=== PATIENT | male | born 1950 | race Caucasian/White ===

== ENCOUNTER 2024-01-17 16:50 | Inpatient (IN) ==
--- NOTE | 2024-01-17 17:14 | Emergency Department Note ---
Impression & Plan PSVT (paroxysmal supraventricular tachycardia), Chest pain, Palpitations ED Provider Note NAME: JOHN JUNIOR AGE: 73 SEX: M : 1950 ARRIVES VIA: Walk-In INFORMANT: Patient, ED PROVIDER(S): Kirk Queen DO CHIEF COMPLAINT: Palpitations HPI: The patient is a 73-year-old male who presented to the emergency department for an evaluation of palpitations. The patient had an acute onset of palpitations earlier this morning. He states it was around breakfast. He has had a similar episode over the course the last few years but it never lasted this long. He denies having any lower extremity swelling. He denies having any shortness of breath. He does note some "burning" across his anterior chest. He states that this does somewhat worsen with exertion. The patient was not seen by his family doctor but came to the emergency department because symptoms were not resolving in usual fashion. ROS: See above HPI for pertinent positives & negatives. A total of 10 systems reviewed and were otherwise negative. PAST MEDICAL HISTORY: See Below PAST SURGICAL HISTORY: See Below FAMILY HISTORY: See Below SOCIAL HISTORY: See Below HOME MEDICATIONS: See Below ALLERGIES: See Below VITALS: See Below PHYSICAL EXAMINATION: GENERAL: Patient is awake alert in no acute distress patient is resting comfortably and showing no signs of anxiety EYES: The conjunctivae are clear. The pupils are round and reactive. EARS, NOSE, MOUTH AND THROAT: The nose is without any evidence of any deformity. Mucous membranes are moist. Tongue is midline. NECK: The neck is nontender and supple. RESPIRATORY: Normal respiratory effort is noted there is no evidence of wheezing rhonchi or rales CARDIOVASCULAR: Tachycardic and regular heart sounds were noted to auscultation. There is no definite murmur. GASTROINTESTINAL: The abdomen is soft. Abdomen is nontender. MUSCULOSKELETAL/EXTREMITIES: There is no evidence of gross deformity full range of motion is noted in the hips and shoulders. SKIN: There is no obvious evidence of any rash. There are no petechiae, pallor or cyanosis noted. NEUROLOGIC: Patient is awake alert and oriented x3 strength is symmetric patellar reflexes are 2+ bilaterally MEDICAL DECISION MAKING: The patient is a 73-year-old male who presented to the emergency department for an evaluation of chest discomfort. The patient was found to be tachycardic with a narrow complex tachycardia. This was treated as an SVT. He was in the SVT since this morning. The patient was treated initially with a modified Valsalva maneuver which did relieve the SVT but then he went back into it quickly. He was then treated with adenosine and IV fluids. He went back into the SVT again and was treated with another dose of adenosine as well as oral beta-blockers. I discussed patient's laboratory and radiographic studies with him. He did have some ischemic changes which were likely rate related. I discussed his condition with the on-call [facility] hospitalist as well as the on-call [facility] contract graphic designer. The patient will likely be a good candidate for inpatient management. He may need an echocardiogram to further evaluate the cause of his symptoms. The patient was agreeable with this plan. Triage Nursing notes reviewed. Prior medical records reviewed Vital Signs: reviewed and remarkable for bradycardia and hypertension. Differential diagnosis: Premature contractions, electrolyte abnormality, cardiac dysrhythmia, thyroid dysfunction, pulmonary embolism, infection, gastrointestinal, as well as other pathologies. ER treatment provided: See below Diagnostics interpreted by me: ECG: EKG was obtained in the emergency department. My interpretation is SVT at [address] depressions were noted. There were no PVCs. This was compared to a tracing from November 28, 2017. SVT has replaced sinus rhythm. A second EKG was obtained after modified Valsalva maneuver. My interpretation is sinus tachycardia at 104 bpm. There is no ectopy. Persistence but improvement of the previously noted ST segment depressions as noted. This compares similar to the previous tracing from November 28, 2017. Cardiac Monitoring: An order was placed for continuous cardiac monitoring. The monitor shows a rate of 45 bpm with sinus bradycardia. Laboratory studies: As stated above and show below. Imaging studies: See below. Radiographic imaging was reviewed by myself Consultation(s): I discussed this case with Dr. Sorenson who is on-call for the [facility] contract graphic designer group. I discussed this case with Dr. Dietz who is on-call for the [facility] hospitalist group. ED COURSE: Procedures: none Critical Care: I have personally spent greater than 45 minutes of critical care time in the direct management of this patient. This includes bedside care, interpretation of diagnostic studies, and testing, discussion with consultants, patient, and family members, and other required patient management activities. This 45 minutes is in excess of all separately billable procedures. Past Med/Surg History Problem List (Updated 01/17/24 @ 22:28 by Kirk Queen DO) PSVT (paroxysmal supraventricular tachycardia) (Acute) Palpitations (Acute) Chest pain (Acute) Medical History High cholesterol Hypertension Social History Smoking Status: Former smoker Tobacco Type: Smokeless Tobacco (Dip or Chew) Do You Dip or Chew Tobacco: Yes (1 can q2 days); Hx Alcohol Use: Yes Alcohol type: beer Hx Substance Use: No Preferred Language: Taiwanese Communication Ability: Effective Regulatory Intern Required: No Beliefs That Will Affect Care: None Current Living Situation: Spouse Feels Safe at Home: Yes Assistive Devices: Glasses Allergies Allergies Allergy/AdvReac Type Severity Reaction Status Date / Time amlodipine Allergy Severe Hives Unverified 01/17/24 18:38 Home Meds Home Medications Medication Instructions Recorded Confirmed lisinopril 10 mg tablet 10 mg PO DAILY 01/17/24 01/17/24 Results & Data (ED) Vital Signs Vital Signs - 24 hr 01/17/24 16:54 01/17/24 17:02 01/17/24 17:03 Temperature 36.9 C Temperature Source Temporal Artery Scan Pulse Rate 130 H 158 H Pulse Rate [Apical] Pulse Rhythm Regular Pulse Rhythm [Apical] Pulse Strength Normal Pulse Strength [Apical] Respiratory Rate 20 Respiratory Effort / Characteristics Non-Labored Spontaneous Respiratory Depth Normal Respiratory Pattern Blood Pressure 119/88 Blood Pressure [Left Arm] Blood Pressure Mean 98 Blood Pressure Mean [Left Arm] Blood Pressure Position [Left Arm] Pulse Oximetry 97 98 Oxygen Delivery Method Room Air Room Air Sepsis Recent Fever Within 48 Hours No Sepsis New/Unexplained Change in Mental Status N/A Sepsis Action Taken by Nursing No Action Required 01/17/24 17:12 01/17/24 17:21 01/17/24 17:28 Temperature Temperature Source Pulse Rate 92 H Pulse Rate [Apical] 143 H 91 H Pulse Rhythm Pulse Rhythm [Apical] Regular Regular Pulse Strength Pulse Strength [Apical] Normal Normal Respiratory Rate 17 25 H Respiratory Effort / Characteristics Non-Labored Spontaneous Non-Labored Spontaneous Respiratory Depth Normal Normal Respiratory Pattern Regular Regular Blood Pressure Blood Pressure [Left Arm] 143/97 H 139/74 Blood Pressure Mean Blood Pressure Mean [Left Arm] 112 95 Blood Pressure Position [Left Arm] Lying Lying Pulse Oximetry 98 99 Oxygen Delivery Method Room Air Room Air Sepsis Recent Fever Within 48 Hours Sepsis New/Unexplained Change in Mental Status Sepsis Action Taken by Nursing 01/17/24 18:59 Temperature Temperature Source Pulse Rate Pulse Rate [Apical] 75 Pulse Rhythm Pulse Rhythm [Apical] Regular Pulse Strength Pulse Strength [Apical] Normal Respiratory Rate 18 Respiratory Effort / Characteristics Non-Labored Spontaneous Respiratory Depth Normal Respiratory Pattern Regular Blood Pressure Blood Pressure [Left Arm] 127/72 Blood Pressure Mean Blood Pressure Mean [Left Arm] 90 Blood Pressure Position [Left Arm] Sitting Pulse Oximetry 98 Oxygen Delivery Method Room Air Sepsis Recent Fever Within 48 Hours Sepsis New/Unexplained Change in Mental Status Sepsis Action Taken by Snf Medications Current Medication List: was personally reviewed by me Laboratory Data Attestation: I reviewed the patient's lab results. 01/17/24 17:11 01/17/24 17:11 Lab Results 01/17/24 Range/Units 17:11 WBC 9.34 (4.8-10.8) K/ul RBC 5.18 (4.70-6.10) M/uL Hgb 14.7 (14.0-18.0) g/dl Hct 45.0 (42.0-52.0) % MCV 86.9 (80.0-100.0) fL MCH 28.4 (25.0-34.0) pg MCHC 32.7 (32.0-36.0) g/dL RDW Std Deviation 38.6 (36.4-46.3) fL RDW Coeff of Grace 12.1 (11.5-14.5) % Plt Count 295 (130-400) K/uL MPV 12.0 (9.4-12.4) fL Immature Gran % (Auto) 0.6 % Neut % (Auto) 71.5 % Lymph % (Auto) 19.5 % Ripley % (Auto) 7.8 % Eos % (Auto) 0.2 % Baso % (Auto) 0.4 % Neut # (Auto) 6.67 H (1.40-6.50) K/uL Lymph # (Auto) 1.82 (1.20-3.40) K/uL Ripley # (Auto) 0.73 H (0.11-0.59) K/uL Eos # (Auto) 0.02 (0.00-0.50) K/uL Baso # (Auto) 0.04 (0.00-0.20) K/uL Immature Gran # (Auto) 0.06 (0.01-0.20) K/uL PT 10.6 (9.0-12.0) Seconds INR 1.0 (0.9-1.1) APTT 30 (21-31) Seconds PTT Ratio 1.1 Sodium 134 L (136-145) mmol/L Potassium 3.9 (3.5-5.1) mmol/L Chloride 97 L (98-107) mmol/L Carbon Dioxide 28 (21-32) mmol/L Anion Gap 9 (3-11) BUN 19 (6-23) mg/dl Creatinine 1.15 (0.6-1.4) mg/dl Est Cr Clr Drug Dosing 57.0 ml/min Est GFR ( Amer) 73.8 ml/min Est GFR (Non-Af Amer) 63.7 ml/min BUN/Creatinine Ratio 16.5 (10-20) Glucose 235 H (70-99(Fasting)) mg/dl Calcium 9.7 (8.6-10.3) mg/dl Magnesium 2.0 (1.7-2.4) mg/dl Total Bilirubin 0.7 (0.2-1.0) mg/dl AST 18 (13-39) U/L ALT 16 (7-52) U/L Alkaline Phosphatase 33 L (34-104) U/L Troponin I High Sens 17.3 (0-20) pg/ml Total Protein 7.4 (6.0-8.3) gm/dl Albumin 4.3 (3.4-5.0) gm/dl Globulin 3.1 (2.5-4.0) gm/dl Albumin/Globulin Ratio 1.4 (0.9-2) Lipase 26 (11-82) U/L TSH 1.615 (0.300-4.500) uIu/ml Administered Medications Acetaminophen (Acetaminophen 325 Mg Tab) 650 mg PO Q4H PRN PRN Reason: Pain or Fever Stop: 02/16/24 20:51 Last Admin: 08/12/24 21:47 Dose: 650 mg Documented By: DANNA Metoprolol Tartrate (Metoprolol Tartrate 25 Mg Tab) 25 mg PO BID LETHA Stop: 02/16/24 20:59 Last Admin: 01/17/24 21:25 Dose: Not Given Documented By: DANNA Discontinued Medications Adenosine (Adenosine Iv Soln 3 Mg/Ml 2 Ml Vial) Confirm Administered Dose 18 mg IV .STK-MED ONE Stop: 01/17/24 17:03 Last Admin: 01/17/24 17:30 Dose: Not Given Documented By: ANTWAN Adenosine (Adenosine Iv Soln 3 Mg/Ml 2 Ml Vial) Confirm Administered Dose 12 mg IV .STK-MED ONE Stop: 01/17/24 17:23 Last Admin: 01/17/24 17:30 Dose: Not Given Documented By: ANTWAN Adenosine (Adenosine Iv Soln 3 Mg/Ml 2 Ml Vial) 6 mg IV NOW STA Stop: 01/17/24 17:27 Last Admin: 01/17/24 17:28 Dose: 6 mg Documented By: Adenosine (Adenosine Iv Soln 3 Mg/Ml 2 Ml Vial) 6 mg IV NOW STA Stop: 01/17/24 18:28 Last Admin: 01/17/24 18:28 Dose: 6 mg Documented By: Sodium Chloride (Nss) 500 mls @ 999 mls/hr IV .Q31M STA Stop: 01/17/24 17:33 Last Infusion: 01/17/24 18:07 Dose: Infused Documented By: Admin: 01/17/24 17:29 Dose: 999 mls/hr Documented By: Sodium Chloride (Nss) 500 mls @ 999 mls/hr IV .Q31M ONE Stop: 01/17/24 17:50 Last Infusion: 01/17/24 18:07 Dose: Infused Documented By: Admin: 01/17/24 17:29 Dose: 999 mls/hr Documented By: Metoprolol Tartrate (Metoprolol Tartrate 50 Mg Tab) 25 mg PO NOW STA Stop: 01/17/24 18:38 Last Admin: 01/17/24 18:58 Dose: 25 mg Documented By: ANTWAN Imaging Data Attestation: I personally reviewed and interpreted this imaging study as follows: My Impression: 1 view chest x-ray was obtained in the emergency department. My interpretation is no free air or definite culture, final report below. Radiologist's Impression: Chest X-Ray 01/17/24 17:03 XR chest 1V portable HISTORY: Chest pain, nonspecific COMPARISON: Chest 11/28/2017. FINDINGS: The lungs are clear. Cardiac silhouette is normal in size. No pleural effusions. No pneumothorax. IMPRESSION: No acute process. ACT 112: Negative or not required by law. Electronically signed by: Wayne Roa M.D. 01/17/2024 6:15 PM Discharge Plan Visit Data Chief Complaint: Chest Pain Stated Complaint: CHEST PAIN, SOB, DIZZY ED Provider: Kirk Queen Discharge Problem: PSVT (paroxysmal supraventricular tachycardia), Chest pain, Palpitations Patient Disposition: Admitted As Inpatient Discharge Instructions Interventions: ED Discharge Assessment Last Done: 01/17/24 20:27 Discharge Problem: Chest pain Qualifiers: Chest pain type: unspecified Qualified Code(s): R07.9 - Chest pain, unspecified
[2024-01-17] MEDS: ADENOSINE IV SOLN 3 MG/ML 2 ML VIAL IV STA ×2 (17:28→18:28)
[2024-01-17] MEDS: SODIUM CHLORIDE 0.9% 500 ML IV STA (17:29)
[2024-01-17] MEDS: SODIUM CHLORIDE 0.9% 500 ML IV ONE (17:29)
[2024-01-17] MEDS: ADENOSINE IV SOLN 3 MG/ML 2 ML VIAL IV ONE ×2 (17:30)
[2024-01-17 17:43] LABS: Albumin Globulin Ratio 1.4 (0.9-2); Albumin Level 4.3 gm/dl (3.4-5.0); BUN Creatinine Ratio 16.5 (10-20); Bilirubin,Total 0.7 mg/dl (0.2-1.0); Calcium 9.7 mg/dl (8.6-10.3); Est GFR (African American) 73.8 ml/min; Est GFR (Non-African American) 63.7 ml/min; Globulin 3.1 gm/dl (2.5-4.0); Potassium 3.9 mmol/L (3.5-5.1); Total Protein 7.4 gm/dl (6.0-8.3)
[2024-01-17 17:49] LABS: Troponin I High Sensitivity 17.3 pg/ml (0-20)
[2024-01-17 17:54] LABS: Partial Thromboplastin Ratio 1.1; Partial Thromboplastin Time 30 Seconds (21-31); Prothrombin Time 10.6 Seconds (9.0-12.0)
[2024-01-17 17:59] LABS: Thyroid Stimulating Hormone 1.615 uIu/ml (0.300-4.500)
[2024-01-17 18:11] LABS: Hemoglobin 14.7 g/dl (14.0-18.0); Mean Corpuscular Hemoglobin 28.4 pg (25.0-34.0); Mean Corpuscular Hgb Conc 32.7 g/dL (32.0-36.0); Mean Corpuscular Volume 86.9 fL (80.0-100.0); RDW Coefficient of Variation 12.1 % (11.5-14.5); RDW Standard Deviation 38.6 fL (36.4-46.3); Red Blood Count 5.18 M/uL (4.70-6.10); White Blood Count 9.34 K/ul (4.8-10.8)
--- NOTE | 2024-01-17 18:16 | XRay Report ---
XR chest 1V portable HISTORY: Chest pain, nonspecific COMPARISON: Chest 11/28/2017. FINDINGS: The lungs are clear. Cardiac silhouette is normal in size. No pleural effusions. No pneumot horax. IMPRESSION: No acute process. ACT 112: Negative or not required by law. Electronically signed by: Wayne Roa M.D. 01/17/2024 6:15 PM
[2024-01-17 18:18] LABS: Basophils # (auto) 0.04 K/uL (0.00-0.20); Basophils % (auto) 0.4 %; Eosinophils # (auto) 0.02 K/uL (0.00-0.50); Eosinophils % (auto) 0.2 %; Immature Granulocytes # (auto) 0.06 K/uL (0.01-0.20); Immature Granulocytes % (auto) 0.6 %; Lymphocytes # (auto) 1.82 K/uL (1.20-3.40); Lymphocytes % (auto) 19.5 %; Monocytes # (auto) 0.73 K/uL (0.11-0.59); Monocytes % (auto) 7.8 %; Neutrophils # (auto) 6.67 K/uL (1.40-6.50); Neutrophils % (auto) 71.5 %; Platelet Count 295 K/uL (130-400)
[2024-01-17] MEDS: METOPROLOL TARTRATE 50 MG TAB PO STA (18:58)
--- NOTE | 2024-01-17 19:23 | History & Physical Report ---
Date of Service January 17, 2024 Assessment & Plan (1) Hypertension: (2) Palpitations: (3) PSVT (paroxysmal supraventricular tachycardia): Plan Mr. Thomson is a 73-year-old male with past medical history of elevated for hypertension and hyperlipidemia who was admitted due to palpitations that are likely related to pSVT pSVT // palpitations - Patient brought by EMS due to palpitation w/ associated SOB, chest tightness, and dizziness Has had similar symptoms in the past but not as severe or as long lasting; hx of cath in 2018 that was negative, per patient - Found to be in SVT with HR reaching 150s, once resolved with Valsalva and returned to SVT twice in short time span, which resolved with 2 separate doses of Adenosine 6 mg - Vital signs remained stable during episodes of tachycardia - Currently at NSR at the time of evaluation and patient asymptomatic - Troponins negative x1, repeat ordered and pending - TSH wnl at 1.61 - Will admit to PCU/Tele for monitoring Given recurrence in relatively short time intervals, ICU made aware of patient should he need higher level of care/monitoring - Cardiology consulted: recommending Metoprolol tartrate PO, first dose given in ED Hyperglycemia - Random bsg of 235 at time of admission - No known hx of DM - Will order Hgb A1c HTN - Home lisinopril on hold Dispo: PCU/Tele Fluids: none Diet: HH VTE ppx: Lovenox Code Status: Full History of Present Illness Chief Complaint: Palpitations Primary Care Provider: Roshan Mobley MD Mr. Thomson is a 73-year-old male with past medical history of elevated for hypertension and hyperlipidemia who was brought to the ED by EMS due to palpitations associated with chest tightness that started earlier in the afternoon today. Patient states that over the last few years he has had similar symptoms (palpitations) but they typically resolve after a short period of rest and they never lasted more than a few minutes. Last night, patient states that he went to bed having a similar sensation as he had in those previous times and went to sleep thinking that it was resolved with rest has not had before. He woke up earlier this morning still feeling "weird "but did not think anything of it. He went shopping with his in the afternoon and noted that his symptoms worsened acutely. He stated that he started having palpitations associated with chest tightness in the substernal region with no radiation, shortness of breath, and felt dizzy. After this he went home to try and rest with hopes that that will resolve his symptoms but since they continued they called EMS. Patient denies having any new medications other than his lisinopril 10 mg and as needed Tylenol for back pain. Denies any substance use or alcohol abuse. Patient does admit to using chewing snuff (1 can every 2 days). Up until recently patient has been taking aspirin 81 mg prophylactically, but PCP stopped it due to patient not having any history of WI/heart disease or CVA. ED Course: Normal saline bolus 500 mL x 2, Valsalva due to SVT episode with successful return to NSR, adenosine 6 mg IV x 2 doses due to 2 additional SVT episodes both with successful return to NSR, Metoprolol tartrate 25 mg PO x1 Labs/Imaging: CBC without leukocytosis and hemoglobin of 14.7, mild hyponatremia of 134, potassium of 3.9, no other electrolyte abnormalities, creatinine of 1.15. LFTs normal. Troponin within normal range (17.3). TSH within normal range at 1.615. CXR with no acute changes. Medical History: [Reviewed] Medications: [Reviewed] Surgical History: [Reviewed] Family history: [Reviewed] Allergies: [Reviewed] Social History: [Reviewed] Allergies Allergy/AdvReac Type Severity Reaction Status Date / Time amlodipine Allergy Severe Hives Unverified 01/17/24 18:38 Home Medications Medication Instructions Recorded Confirmed Type lisinopril 10 mg tablet 10 mg PO DAILY 01/17/24 01/17/24 History Past Med/Surg History Problem List (Updated 01/17/24 @ 19:22 by Hilary Bucio MD) PSVT (paroxysmal supraventricular tachycardia) Palpitations Chest pain Medical History High cholesterol Hypertension Social History Smoking Status: Former smoker Feels Safe at Home: Yes Review of Systems Review of Systems: As per HPI Physical Exam Physical Exam: GENERAL: AAOX3, afebrile, NAD HEAD: AT and NC EYES: EOM intact, YAZAN, non-injected conjunctiva, no scleral icterus CHEST: symmetric chest expansions with respirations CARDIO: RRR, no r/m/g PULMONARY: CTA b/l, normal respiratory effort, no respiratory distress GI: soft, non distended, non tender EXTREMITIES: no swelling or che tenderness in b/l LE SKIN: no rashes Results & Data Results & Data Vital Signs (Past 12 Hours) Vital Signs Temp Pulse Pulse Resp BP BP Pulse Ox 01/17/24 18:59 75 18 127/72 98 01/17/24 17:28 91 H 25 H 139/74 99 01/17/24 17:21 143 H 17 143/97 H 98 01/17/24 17:12 92 H 01/17/24 17:03 98 01/17/24 17:02 158 H 01/17/24 16:54 36.9 C 130 H 20 119/88 97 O2 Del Method 01/17/24 18:59 Room Air 01/17/24 17:28 Room Air 01/17/24 17:21 Room Air 01/17/24 17:12 01/17/24 17:03 Room Air 01/17/24 17:02 01/17/24 16:54 Room Air Supervising Physician Co-Signing Physician Notes I have personally seen, evaluated and examined the patient. I have also personally discussed the management of the patient with the resident physician/GURU and I agree with the exam findings documented in the history and physical examination and the documented assessment and plan unless otherwise stated below. Brief Exam: In general this is a 73-year-old male who is alert normotensive, exam accompanied by his , examination. He interacts appropriately pleasantly. He is alert and oriented x 3. HEENT: Normocephalic atraumatic. Heart: Is regular rate and rhythm at this time sinus rhythm on the monitor rate in the 70s. Lungs: Are clear bilaterally. Abdomen soft nontender positive bowel sounds no bruits organomegaly. Extremities intact: No peripheral cyanosis clubbing or edema. Neurologically: Alert and x 3. Cranial nerves II through XII grossly intact with no focal deficit on exam. Assessment/plan: As described above. Refractory intermittent SVT. Responsive to adenosine. telemetry monitoring. Cardiology consulted. TSH was within normal limits. The patient does use nicotine in the form of side 2. Approximately half a pack per day. Patient only drinks 1 cup of strong black coffee per day. No other caffeinated drinks through the day per the patient. Beta-echo has been introduced in the form of oral metoprolol. We will continue this daily for now until cardiology sees the patient. Cardiology was consulted via the ER. Echocardiogram in the morning. Please refer to orders for further planning. Resident Activity Tracking Resident Involvement: Resident Care Provided Care Provided: Adult [facility] Medicine
--- NOTE | 2024-01-17 20:13 | Billing Data ---
Date of Service January 17, 2024 Coding Level of Care Code 07190 INT INP/OBS CARE
[2024-01-17] MEDS ORDERED: ONDANSETRON INJ 2 MG/ML 2 ML VIAL IV PRN (20:52)
[2024-01-17] MEDS ORDERED: POLYETHYLENE (MIRALAX) 17 GM PACK PO PRN (20:52)
[2024-01-17] MEDS: METOPROLOL TARTRATE 25 MG TAB PO SCH (21:25)
[2024-01-17] MEDS: ACETAMINOPHEN 325 MG TAB PO PRN (21:47)
[2024-01-17 22:08] LABS: Troponin I High Sensitivity 39.8 pg/ml (0-20)
[2024-01-18 07:02] LABS: Albumin Globulin Ratio 1.4 (0.9-2); Albumin Level 3.6 gm/dl (3.4-5.0); BUN Creatinine Ratio 13.2 (10-20); Bilirubin,Total 0.7 mg/dl (0.2-1.0); Calcium 9.1 mg/dl (8.6-10.3); Est GFR (African American) 97.9 ml/min; Est GFR (Non-African American) 84.5 ml/min; Globulin 2.6 gm/dl (2.5-4.0); Potassium 4.3 mmol/L (3.5-5.1); Total Protein 6.2 gm/dl (6.0-8.3)
[2024-01-18 07:07] LABS: Troponin I High Sensitivity 22.8 pg/ml (0-20)
[2024-01-18 07:17] LABS: Estimated Average Glucose 120 mg/dl; Hemoglobin A1C 5.8 % (4.5-5.6)
[2024-01-18 07:26] VITALS: RESP 17
[2024-01-18 07:53] LABS: Hematocrit (blood only) 41.6 % (42.0-52.0); Hemoglobin 13.7 g/dl (14.0-18.0); Mean Corpuscular Hemoglobin 28.8 pg (25.0-34.0); Mean Corpuscular Hgb Conc 32.9 g/dL (32.0-36.0); Mean Corpuscular Volume 87.6 fL (80.0-100.0); Platelet Estimate Normal (Normal); RDW Coefficient of Variation 12.2 % (11.5-14.5); RDW Standard Deviation 39.2 fL (36.4-46.3); Red Blood Count 4.75 M/uL (4.70-6.10); White Blood Count 7.03 K/ul (4.8-10.8)
[2024-01-18] MEDS ORDERED: METOPROLOL SUCC 25MG EXT REL TAB PO SCH (09:00)
--- NOTE | 2024-01-18 09:08 | Cardiology Consultation ---
Date of Consultation January 18, 2024 Assessment & Plan (1) AVNRT (AV jose raul re-entry tachycardia): (2) Demand ischemia: Plan Mr. Thomson is a 73 year old male with a history of Hypertension, Hypercholesterolemia, Hyperglycemia, Aortic Valve Sclerosis, and Paroxysmal Supraventricular Tachycardia who presented acutely to [facility] ER on 01/17/24 with a persistent AVNRT and Demand Ischemia. His complaints included Tachy-palpitations and Chest Burning that began on the evening of 01/16/24 and these symptoms were very persistent. He did not sleep well that night because of his symptoms. On 01/17/24, the patient and his came into town to run errands and the patient continued to feel poorly, he had a poor appetite, chest burning, tachy-palpitations, and he noted that his heart rate was in the 150 to 160 bpm range. He mentioned that he wasn't feeling well -- so she brought him up to the ER. Patient has experienced intermittent tachy-palpitations over the past several years -- typically these episodes could last up to 10 or 15 minutes and then resolve spontaneously. Patient admits that his palpitations have become more frequent in recent months which is also concerning to him. Historically patient would sit down or lie down and intentionally take slow deep breaths and this would help his heart slow down. However, this episode was the longest episode of AVNRT that he has ever had. Evaluation in the ER revealed AVNRT at 156 bpm with diffuse upsloping ST d epression and T wave inversion in leads V1 and V2. [employer] showed this supraventricular tachycardia. Patient received IV Adenosine 6 mg which converted him to a sinus rhythm but this AVNRT recurred requiring a second dose of IV Adenosine 6 mg -- which again converted him back to a sinus mechanism. He was then given a dose of Metoprolol. He has remained in a normal sinus rhythm/sinus bradycardia ever since. Patient's initial high sensitivity Troponin I was normal at 17.3 pg/mL but follow-up values were abnormal at 39.8, 40.4, and 22.8 pg/mL. CBC with diff was unremarkable, chemistry panel showed normal potassium level, mild hyponatremia, BUN 19 mg/dL, and Creatinine was 1.15 mg/dL. Patient is lying comfortably in his bed in room 216 and he is currently completely asymptomatic. He has not had any further tachycardia, tachy- palpitations, or chest burning. We had a long discussion regarding what AVNRT/PSVT is, and we discussed various management strategies including treating it medically and we discussed catheter based therapy as well. Recommend the followin. Arrange outpatient consultation with Dr. Jean in coming weeks, plan on proceeding with an ablation procedure. 2. Discharge to home today on Metoprolol Succinate ER 50 mg daily. 3. Continue Lisinopril 10 mg daily. 4. [facility] will contact the patient for his follow-up visit with Dr. Jean. Thank you for asking us to see this patient in consultation. History of Present Illness Reason for Consultation: -- AVNRT. Requesting Physician: Papo Barnhart DO Attending Physician: Kirk Solis MD History of Present Illness Mr. Thomson is a 73 year old male with a history of Hypertension, Hypercholesterolemia, Hyperglycemia, Aortic Valve Sclerosis, and Paroxysmal Gomez praventricular Tachycardia who presented acutely to [facility] ER on 01/17/24 complaining of Tachy-palpitations and Chest Burning that began on the evening of 01/16/24 and was very persistent. He did not sleep well that night because of his symptoms. On 01/17/24, the patient and his came into town to run errands and the patient continued to feel poorly, he had a poor appetite, chest burning, tachy-palpitations, and he noted that his heart rate was in the 150 to 160 bpm range. He mentioned that he wasn't feeling well -- so she brought him up to the ER. Patient has experienced intermittent tachy-palpitations over the past several years -- typically these episodes could last up to 10 or 15 minutes and then resolve spontaneously. Historically patient would sit down or lie down and intentionally take slow deep breaths and this would help his heart slow down. However, this episode was the longest episode of AVNRT that he has ever had. Evaluation in the ER revealed AVNRT at 156 bpm with diffuse upsloping ST depression and T wave inversion in leads V1 and V2. Delivery Of [employer] showed this supraventricular tachycardia. Patient received IV Adenosine 6 mg which converted him to a sinus rhythm but this AVNRT recurred requiring a second dose of IV Adenosine 6 mg -- which again converted him back to a sinus mechanism. He was then given a dose of Metoprolol. He has remained in a normal sinus rhythm/sinus bradycardia ever since. Patient's initial high sensitivity Troponin I was normal at 17.3 pg/mL but follow-up values were abnormal at 39.8, 40.4, and 22.8 pg/mL. CBC with diff was unremarkable, chemistry panel showed normal potassium level, mild hyponatremia, BUN 19 mg/dL, and Creatinine was 1.15 mg/dL. Patient is currently completely asymptomatic. He has not had any further tachycardia, tachy-palpitations, or chest burning. Allergies Allergy/AdvReac Type Severity Reaction Status Date / Time amlodipine Allergy Severe Hives Unverified 01/17/24 18:38 Home Medications Medication Instructions Recorded Confirmed Type lisinopril 10 mg tablet 10 mg PO DAILY 01/17/24 01/17/24 History Patient History Medical History High cholesterol Hypertension Social History Smoking Status: Former smoker Tobacco Type: Smokeless Tobacco (Dip or Chew) Do You Dip or Chew Tobacco: Yes (1 can q2 days); Hx Alcohol Use: Yes Alcohol type: beer Hx Substance Use: No Preferred Language: Kyrgyz Communication Ability: Effective Guide Dog Instructor Required: No Beliefs That Will Affect Care: None Current Living Situation: Spouse Feels Safe at Home: Yes Assistive Devices: None Review of Systems Review of Systems: -- As per HPI. Physical Exam Physical Exam: Pulse 50 bpm and regular. BP 152/76. GENERAL: Patient in no acute distress. HEENT: Head is atraumatic, normocephalic. EOM's intact. Facies symmetric. No perioral cyanosis. NECK: No JVD. JVP is not elevated. Carotid upstrokes are + 2 bilaterally without bruits. CHEST/LUNGS: Clear to auscultation throughout all lung bronw. No wheezes, rales, or crackles. CVS: S1 and S2 are regular with a grade 1/6 basal systolic murmur. No diastolic murmurs. No gallops or rubs. PMI is nondisplaced. No lifts, heaves, or thrills. No abdominal aortic or renal bruits. ABDOMINAL EXAM: Bowel sounds are present. EXTREMITIES: No clubbing or cyanosis. No edema. NEUROLOGIC EXAM: Patient is awake, alert, and oriented. Pleasant and cooperative. Answers questions appropriately. Speech is clear. ER MANAGER: -- Sinus bradycardia in the upper 40's a nd low 50's. -- In the pension fund manager hours he develop ed sinus bradycardia with a wide QRS and this appeared to become an AIVR lasting 16 beats in total. ECHOCARDIOGRAM 01/18/24: -- Normal LV size, wall motion, and syst olic function. -- LVEF 60% to 65%. -- No significant valvular abnormalities . Results & Data Vital Signs (Past 12 Hours) Vital Signs Temp Pulse Pulse Pulse Resp BP Pulse Ox 01/18/24 07:25 36.6 C 48 L 17 152/76 H 98 01/18/24 02:54 36.4 C L 47 L 14 114/59 L 97 01/17/24 22:45 36.7 C 45 L 14 121/71 97 01/17/24 22:10 45 L 161/79 H 01/17/24 21:59 39 L O2 Del Method 01/18/24 07:25 Room Air 01/18/24 02:54 Room Air 01/17/24 22:45 Room Air 01/17/24 22:10 01/17/24 21:59 Laboratory Results Laboratory Results - last 24 hr 01/17/24 01/17/24 01/18/24 17:11 21:07 00:01 WBC 9.34 RBC 5.18 Hgb 14.7 Hct 45.0 MCV 86.9 MCH 28.4 MCHC 32.7 RDW Std Deviation 38.6 RDW Coeff of Grace 12.1 Plt Count 295 MPV 12.0 Immature Gran % (Auto) 0.6 Neut % (Auto) 71.5 Lymph % (Auto) 19.5 [place] % (Auto) 7.8 Eos % (Auto) 0.2 Baso % (Auto) 0.4 Neut # (Auto) 6.67 H Lymph # (Auto) 1.82 [place] # (Auto) 0.73 H Eos # (Auto) 0.02 Baso # (Auto) 0.04 Immature Gran # (Auto) 0.06 Absolute Nucleated RBC Nucleated RBC % (auto) Platelet Estimate PT 10.6 INR 1.0 APTT 30 PTT Ratio 1.1 Sodium 134 L Potassium 3.9 Chloride 97 L Carbon Dioxide 28 Anion Gap 9 BUN 19 Creatinine 1.15 Est Cr Clr Drug Dosing 57.0 Est GFR ( Amer) 73.8 Est GFR (Non-Af Amer) 63.7 BUN/Creatinine Ratio 16.5 Glucose 235 H Estimat Average Glucose Hemoglobin A1c Calcium 9.7 Magnesium 2.0 2.0 Total Bilirubin 0.7 AST 18 ALT 16 Alkaline Phosphatase 33 L Troponin I High Sens 17.3 39.8 H D 40.4 H Total Protein 7.4 Albumin 4.3 Globulin 3.1 Albumin/Globulin Ratio 1.4 Lipase 26 TSH 1.615 01/18/24 01/18/24 06:18 07:11 WBC Cancelled 7.03 RBC Cancelled 4.75 Hgb Cancelled 13.7 L Hct Cancelled 41.6 L MCV Cancelled 87.6 MCH Cancelled 28.8 MCHC Cancelled 32.9 RDW Std Deviation Cancelled 39.2 RDW Coeff of Grace Cancelled 12.2 Plt Count Cancelled Pending MPV Cancelled Immature Gran % (Auto) Neut % (Auto) Lymph % (Auto) [place] % (Auto) Eos % (Auto) Baso % (Auto) Neut # (Auto) Lymph # (Auto) [place] # (Auto) Eos # (Auto) Baso # (Auto) Immature Gran # (Auto) Absolute Nucleated RBC Cancelled Nucleated RBC % (auto) Cancelled Platelet Estimate Cancelled Normal PT INR APTT PTT Ratio Sodium 137 Potassium 4.3 Chloride 102 Carbon Dioxide 31 Anion Gap 4 BUN 12 Creatinine 0.91 Est Cr Clr Drug Dosing 72.0 Est GFR ( Amer) 97.9 Est GFR (Non-Af Amer) 84.5 BUN/Creatinine Ratio 13.2 Glucose 89 Estimat Average Glucose 120 Hemoglobin A1c 5.8 H Calcium 9.1 Magnesium Total Bilirubin 0.7 AST 15 ALT 13 Alkaline Phosphatase 25 L Troponin I High Sens 22.8 H D Total Protein 6.2 Albumin 3.6 Globulin 2.6 Albumin/Globulin Ratio 1.4 Lipase TSH Diagnostic Findings CXR 01/17/24: FINDINGS: -- The lungs are clear. Cardiac silhouette is normal in size. No pleural effusions. No pneumothorax. IMPRESSION: -- No acute process. Medications Administered Medication List Acetaminophen (Acetaminophen 325 Mg Tab) 650 mg PO Q4H PRN PRN Reason: Pain or Fever Stop: 02/16/24 20:51 Last Admin: 01/17/24 21:47 Dose: 650 mg Documented By: DANNA Enoxaparin Sodium (Enoxaparin Inj 40 Mg/0.4 Ml Syr) 40 mg SQ QAM LETHA Stop: 02/17/24 08:59 Last Admin: 01/18/24 09:12 Dose: 40 mg Documented By: PK Metoprolol Tartrate (Metoprolol Tartrate 25 Mg Tab) 25 mg PO BID LETHA Stop: 02/16/24 20:59 Last Admin: 01/18/24 09:12 Dose: Not Given Documented By: Admin: 01/17/24 21:25 Dose: Not Given Documented By: DANNA Potassium Chloride (Potassium Chloride Crtab 20 Meq Tabcr) 20 meq PO QAM LETHA Stop: 02/17/24 08:59 Last Admin: 01/18/24 09:12 Dose: 20 meq Documented By: PK Discontinued Medications Adenosine (Adenosine Iv Soln 3 Mg/Ml 2 Ml Vial) Confirm Administered Dose 18 mg IV .STK-MED ONE Stop: 01/17/24 17:03 Last Admin: 01/17/24 17:30 Dose: Not Given Documented By: ANTWAN Adenosine (Adenosine Iv Soln 3 Mg/Ml 2 Ml Vial) Confirm Administered Dose 12 mg IV .STK-MED ONE Stop: 01/17/24 17:23 Last Admin: 01/17/24 17:30 Dose: Not Given Documented By: ANTWAN Adenosine (Adenosine Iv Soln 3 Mg/Ml 2 Ml Vial) 6 mg IV NOW STA Stop: 01/17/24 17:27 Last Admin: 01/17/24 17:28 Dose: 6 mg Documented By: Adenosine (Adenosine Iv Soln 3 Mg/Ml 2 Ml Vial) 6 mg IV NOW STA Stop: 01/17/24 18:28 Last Admin: 01/17/24 18:28 Dose: 6 mg Documented By: Sodium Chloride (Nss) 500 mls @ 999 mls/hr IV .Q31M STA Stop: 01/17/24 17:33 Last Infusion: 01/17/24 18:07 Dose: Infused Documented By: Admin: 01/17/24 17:29 Dose: 999 mls/hr Documented By: MSSuresh Sodium Chloride (Nss) 500 mls @ 999 mls/hr IV .Q31M ONE Stop: 01/17/24 17:50 Last Infusion: 01/17/24 18:07 Dose: Infused Documented By: Admin: 01/17/24 17:29 Dose: 999 mls/hr Documented By: Metoprolol Tartrate (Metoprolol Tartrate 50 Mg Tab) 25 mg PO NOW STA Stop: 01/17/24 18:38 Last Admin: 01/17/24 18:58 Dose: 25 mg Documented By: ANTWAN PG Care Time/CCT Total # of Minutes Spent Total Time Spent with Patient: Total time spent is greater than 50% in coordination of care (as documented) at patient's floor/unit and/or counseling patient:40 [place] [address] INT INP/OBS CARE 2/55MIN Patient Type New Medical Decision Making Moderate Complexity Diagnoses AVNRT (AV jose raul re-entry tachycardia) I47.19 Demand ischemia I24.89 Time Spent (min) 60
[2024-01-18] MEDS: POTASSIUM CHLORIDE CRTAB 20 MEQ TABCR PO SCH (09:12)
[2024-01-18] MEDS: ENOXAPARIN INJ 40 MG/0.4 ML SYR SQ SCH (09:12)
--- NOTE | 2024-01-18 09:45 | XCELERA ---
[id number] \\[id number]
--- NOTE | 2024-01-18 10:29 | Electrocardiogram Report ---
Test Reason : Blood Pressure : */* mmHG Vent. Rate : 104 BPM Atrial Rate : 104 BPM P-R Int : 238 ms QRS Dur : 80 ms QT Int : 314 ms P-R-T Axes : 78 73 75 degrees QTcB Int : 412 ms Sinus tachycardia with 1st degree A-V block Nonspecific ST abnormality Abnormal ECG When compared with ECG of 17-Jan-2024 17:00, (unconfirmed) Vent. rate has decreased by [address] no longer depressed in Inferior leads ST no longer depressed in Lateral leads Confirmed by Kirk Solis ([id number]) on 01/18/2024 10:29:42 AM Referred By: REFERRED SELF Confirmed By: Kirk Solis
--- NOTE | 2024-01-18 10:30 | Electrocardiogram Report ---
Test Reason : Blood Pressure : */* mmHG Vent. Rate : 156 BPM Atrial Rate : * BPM P-R Int : * ms QRS Dur : 72 ms QT Int : 286 ms P-R-T Axes : * 69 11 degrees QTcB Int : 460 ms Supraventricular tachycardia Marked ST abnormality, possible inferior subendocardial injury Abnormal ECG When compared with ECG of 28-Nov-2017 06:46, Vent. rate has increased by [address] now depressed in Inferior leads ST now depressed in Anterolateral leads T wave inversion now evident in Anterior leads Confirmed by Kirk Solis ([id number]) on 01/18/2024 10:29:51 AM Referred By: REFERRED SELF Confirmed By: Kirk Solis
[2024-01-18 11:10] VITALS: TEMP 98.1
--- NOTE | 2024-01-18 12:54 | Discharge Summary ---
Date of Service January 18, 2024 Admission HPI Per Admitting Provider Mr. Thomson is a 73-year-old male with past medical history of elevated for hypertension and hyperlipidemia who was brought to the ED by EMS due to palpitations associated with chest tightness that started earlier in the afternoon today. Patient states that over the last few years he has had similar symptoms (palpitations) but they typically resolve after a short period of rest and they never lasted more than a few minutes. Last night, patient states that he went to bed having a similar sensation as he had in those previous times and went to sleep thinking that it was resolved with rest has not had before. He woke up earlier this morning still feeling "weird "but did not think anything of it. He went shopping with his in the afternoon and noted that his symptoms worsened acutely. He stated that he started having palpitations associated with chest tightness in the substernal region with no radiation, shortness of breath, and felt dizzy. After this he went home to try and rest with hopes that that will resolve his symptoms but since they continued they called EMS. Patient denies having any new medications other than his lisinopril 10 mg and as needed Tylenol for back pain. Denies any substance use or alcohol abuse. Patient does admit to using chewing snuff (1 can every 2 days). Up until recently patient has been taking aspirin 81 mg prophylactically, but PCP stopped it due to karishma ent not having any history of ID/heart disease or CVA. ED Course: Normal saline bolus 500 mL x 2, Valsalva due to SVT episode with successful return to NSR, adenosine 6 mg IV x 2 doses due to 2 additional SVT episodes both with successful return to NSR, Metoprolol tartrate 25 mg PO x1 Labs/Imaging: CBC without leukocytosis and hemoglobin of 14.7, mild hyponatremia of 134, potassium of 3.9, no other electrolyte abnormalities, creatinine of 1.15. LFTs normal. Troponin within normal range (17.3). TSH within normal range at 1.615. CXR with no acute changes. Medical History: [Reviewed] Medications: [Reviewed] Surgical History: [Reviewed] Family history: [Reviewed] Allergies: [Reviewed] Social History: [Reviewed] Principal Diagnosis SVT/AVNRT Discharge Exam General: patient resting comfortably, NAD, non-toxic in appearance, answers questions appropriately. Skin: warm, dry, intact HEENT: NC/AT, anicteric sclera, conjunctiva without injection, moist mucus membranes. Heart: +S1/S2, regular, no m/r/g Lungs: equal air entry bilaterally, no rales/rhonchi/wheezes Abd: +BS, soft, NT/ND Ext: warm, no clubbing/cyanosis or edema Neuro: nonfocal, speech intact, no facial droop, moving all extremities. Discharge Data Allergies Allergy/AdvReac Type Severity Reaction Status Date / Time amlodipine Allergy Severe Hives Unverified 01/17/24 18:38 Consultations 01/17/24 18:59 ED Decision to Admit Stat 01/17/24 19:46 Consult Cardiology Routine Ordered Studies Laboratory Results WBC 7.03 K/ul (4.8-10.8) 01/18/24 07:11 RBC 4.75 M/uL (4.70-6.10) 01/18/24 07:11 Hgb 13.7 g/dl (14.0-18.0) L 01/18/24 07:11 Hct 41.6 % (42.0-52.0) L 01/18/24 07:11 MCV 87.6 fL (80.0-100.0) 01/18/24 07:11 MCH 28.8 pg (25.0-34.0) 01/18/24 07:11 MCHC 32.9 g/dL (32.0-36.0) 01/18/24 07:11 RDW Std Deviation 39.2 fL (36.4-46.3) 01/18/24 07:11 RDW Coeff of Grace 12.2 % (11.5-14.5) 01/18/24 07:11 Plt Count Cancelled 01/18/24 06:18 MPV fL (9.4-12.4) 01/18/24 07:11 Immature Gran % (Auto) 0.6 % 01/17/24 17:11 Neut % (Auto) 71.5 % 01/17/24 17:11 Lymph % (Auto) 19.5 % 01/17/24 17:11 [place] % (Auto) 7.8 % 01/17/24 17:11 Eos % (Auto) 0.2 % 01/17/24 17:11 Baso % (Auto) 0.4 % 01/17/24 17:11 Neut # (Auto) 6.67 K/uL (1.40-6.50) H 01/17/24 17:11 Lymph # (Auto) 1.82 K/uL (1.20-3.40) 01/17/24 17:11 [place] # (Auto) 0.73 K/uL (0.11-0.59) H 01/17/24 17:11 Eos # (Auto) 0.02 K/uL (0.00-0.50) 01/17/24 17:11 Baso # (Auto) 0.04 K/uL (0.00-0.20) 01/17/24 17:11 Immature Gran # (Auto) 0.06 K/uL (0.01-0.20) 01/17/24 17:11 Absolute Nucleated RBC Cancelled 01/18/24 06:18 Nucleated RBC % (auto) Cancelled 01/18/24 06:18 Platelet Estimate Normal (Normal) 01/18/24 07:11 PT 10.6 Seconds (9.0-12.0) 01/17/24 17:11 INR 1.0 (0.9-1.1) 01/17/24 17:11 APTT 30 Seconds (21-31) 01/17/24 17:11 PTT Ratio 1.1 01/17/24 17:11 Sodium 137 mmol/L (136-145) 01/18/24 06:18 Potassium 4.3 mmol/L (3.5-5.1) 01/18/24 06:18 Chloride 102 mmol/L (98-107) 01/18/24 06:18 Carbon Dioxide 31 mmol/L (21-32) 01/18/24 06:18 Anion Gap 4 (3-11) 01/18/24 06:18 BUN 12 mg/dl (6-23) 01/18/24 06:18 Creatinine 0.91 mg/dl (0.6-1.4) 01/18/24 06:18 Est Cr Clr Drug Dosing 72.0 ml/min 01/18/24 06:18 Est GFR ( Amer) 97.9 ml/min 01/18/24 06:18 Est GFR (Non-Af Amer) 84.5 ml/min 01/18/24 06:18 BUN/Creatinine Ratio 13.2 (10-20) 01/18/24 06:18 Glucose 89 mg/dl (70-99(Fasting)) 01/18/24 06:18 Estimat Average Glucose 120 mg/dl 01/18/24 06:18 Hemoglobin A1c 5.8 % (4.5-5.6) H 01/18/24 06:18 Calcium 9.1 mg/dl (8.6-10.3) 01/18/24 06:18 Magnesium 2.0 mg/dl (1.7-2.4) 01/17/24 21:07 Total Bilirubin 0.7 mg/dl (0.2-1.0) 01/18/24 06:18 AST 15 U/L (13-39) 01/18/24 06:18 ALT 13 U/L (7-52) 01/18/24 06:18 Alkaline Phosphatase 25 U/L (34-104) L 01/18/24 06:18 Troponin I High Sens 22.8 pg/ml (0-20) H D 01/18/24 06:18 Total Protein 6.2 gm/dl (6.0-8.3) 01/18/24 06:18 Albumin 3.6 gm/dl (3.4-5.0) 01/18/24 06:18 Globulin 2.6 gm/dl (2.5-4.0) 01/18/24 06:18 Albumin/Globulin Ratio 1.4 (0.9-2) 01/18/24 06:18 Lipase 26 U/L (11-82) 01/17/24 17:11 TSH 1.615 uIu/ml (0.300-4.500) 01/17/24 17:11 Impressions Chest X-Ray 01/17/24 17:03 XR chest 1V portable HISTORY: Chest pain, nonspecific COMPARISON: Chest 11/28/2017. FINDINGS: The lungs are clear. Cardiac silhouette is normal in size. No pleural effusions. No pneumothorax. IMPRESSION: No acute process. ACT 112: Negative or not required by law. Electronically signed by: Wayne Roa M.D. 01/17/2024 6:15 PM Hospital Course (1) PSVT (paroxysmal supraventricular tachycardia): (2) Hypertension: Plan Mr. Thomson is a 73-year-old male with past medical history of hypertension and hyperlipidemia who was admitted due to palpitations that are likely related to pSVT pSVT // palpitations - Patient brought by EMS due to palpitation w/ associated SOB, chest tightness, and dizziness Has had similar symptoms in the past but not as severe or as long lasting; hx of cath in 2018 that was negative, per patient - Found to be in SVT with HR reaching 150s, once resolved with Valsalva and returned to SVT twice in short time span, which resolved with 2 separate doses of Adenosine 6 mg - Vital signs remained stable during episodes of tachycardia - Currently at NSR at the time of evaluation and patient asymptomatic - TSH wnl at 1.61 - Will admit to PCU/Tele for monitoring Given recurrence in relatively short time intervals, ICU made aware of patient should he need higher level of care/monitoring - Cardiology recs: discharge to home on Metoprolol Succinate 50mg daily, follow up with Dr. Jean in few weeks to plan for ablation procedure HTN - Resume Lisinopril 10 mg daily Dispo: PCU/Tele Fluids: none Diet: HH VTE ppx: Lovenox Code Status: Full Total Time Total Time Spent Total Time Spent (In Minutes): <30 Discharge Plan Discharge Items Patient Disposition: Home - Self-Care Reason For Visit: PALPITATIONS Discharge Diagnosis: SVT Activity: Per Instructions section Non-emergency contact: Primary Care Provider Call non-emergency contact if: you have any medication questions Follow-up/Referrals: Roshan Mobley MD [Primary Care Provider] - Diet: Regular Addtl Attending Provider Instructions: You were admitted to the hospital due to SVT that did not resolve spontaneously. With this condition you can expect that you may experience a faster than normal heart rate during exercise, stress, or rest. In order to keep your heart rate at a manageable level and prevent another complicated occurrence of SVT you have been prescribed metoprolol succinate ER 25 mg to be taken daily. In addition to this therapy, cardiology has recommended a follow up appointment with Dr. Jean in the coming weeks to discuss a potential ablation for a more permanent resolution of your symptoms. You can expect to be contacted by the [facility] Cardiology department to schedule your follow up appointment with Dr. Jean. If you were to have another episode that lasts longer than 30 minutes, that does not go away with vagal maneuvers like carotid massage, blowing through a straw or ice water to face, you should come back to the ED. A discharge summary will be sent to your primary care physician to ensure continuity of care. Please bring this discharge summary with you to your next office appointment so that your provider can review it at that time. Follow-up appointments: Make a follow-up appointment with your PCP within the next week. It is very important that you follow up with them shortly after discharge from the hospital. Medications: Your medication list has been reviewed and reconciled upon discharge to ensure accuracy and continuity of care. An updated list of all your medications is included with your hospital discharge paperwork. Please review this list closely, and make note of any changes. We sent a new medication called Metoprolol Succinate ER to your pharmacy. Take Metoprolol Succinate ER 50 mg 1 tablet daily If you have any issues filling these prescriptions, please call [phone] and ask to leave a message for Dr. Erwin Maravilla. Take your medications as instructed; do not skip a dose of your medicines. Make sure all of your doctors know every medicine you are taking (including [id number] medicines, vitamins, and supplements). Call your primary care provider before taking any new medicines (including [id number] medicines, vitamins, and supplements), because some of these may interact with your current medications, or may make your symptoms worse. Tell your primary care provider if you cannot afford your medications. CONTACT YOUR PRIMARY CARE PROVIDER if you experience any of the following: Difficulty following your treatment plan, or difficulty taking medications CALL 911 OR GO TO THE EMERGENCY DEPARTMENT if you experience any of the following: Sudden, severe abdominal pain or nausea/vomiting Severe chest pain, or chest pain that radiates (moves) to your jaw or arm Sudden, severe shortness of breath or difficulty breathing Thank you for allowing us to participate in your care. Pending Studies at Discharge: No Stand-Alone Forms: My [facility] [employer], Smoking Cessation Medications and DC Order Prescriptions: New metoprolol succinate 25 mg tablet extended release 24 hr 25 mg PO DAILY Qty: 30 0RF Continued lisinopril 10 mg tablet 10 mg PO DAILY Discharge Orders: Discharge Order (Routine); Ordered 01/18/24 Ordered By: Erwin Maravilla Admission Data Admit Date/Time: 01/17/24 19:30 Attending Provider: Papo Barnhart Admit Provider: Steve Dietz Primary Care Provider: Roshan Mobley Other Providers: Steve Dietz; Musa Sorenson; [facility] Supervising Physician Co-Signing Physician Notes I personally examined the patient and verified all chu points of history and exam, discussed case, and agree with decision making with Dr Maravilla feeling good and would like to go home. Discussed SVT, acute management, vagal maneuvers, and ablationanswered all questions to the best my ability and to his/his 's satisfaction. Vitals noted, in general he is awake and alert p leasant no distress. HEENT normocephalic atraumatic mucous membranes moist. Breathing unlabored no accessory muscle use good effort. Skin shows no rashes no pallor or icterus. Neuro without focal deficits. SVTnow back in sinus rhythm. Safe/stable for home. Metoprolol (reduced dose to 25 mg given that while he is asymptomatic with his bradycardia, he is fairly bradycardic) and outlined precautions. Discussed vagal maneuvers. Is being set up for ablation. Otherwise as above.
[2024-01-18 14:47] VITALS: O2SAT 98
--- NOTE | 2024-01-18 14:59 | Billing Data ---
Date of Service January 18, 2024 Coding Level of Care Code 13271 IN/OBS DISCH 30 MIN/LESS
[2024-01-18 15:33] VITALS: BP 131/86; PULSE 45
== END 2024-01-18 15:51 | disposition home or self-care (01) | DRG 309 ==
LOC: ED 16:50 → 2S 19:30 → SUATTDRO 19:30 → 2S 20:27